=== PATIENT | male | born 1995 | race Hispanic/Latino ===

== ENCOUNTER 2017-10-24 19:21 | Emergency (ER) | payer SELFPAY ==
[2017-10-24] MEDS ORDERED: BUPIVACAINE 0.5% PF 10 ML VIAL ONE (19:51)
[2017-10-24] MEDS ORDERED: LIDOCAINE 1% MPF 5 ML VIAL ONE (19:51)
--- NOTE | 2017-10-24 20:31 | ER ---
Nurse's Notes [facility] Name: Minh Leo Age: 22 yrs Sex: Male : 1995 Arrival Date: 10/24/2017 Time: 19:22 Bed 18 Private MD: Diagnosis: Ingrowing nail-right great toe Presentation: 10/24 19:43 Presenting complaint: Patient states: he has ingrown toenail to right big toe which he bb had had removed several times but it keeps growing back, his toe is swollen and painful now. Transition of care: patient was not received from another setting of care. Onset of symptoms was October 24, 2017. Risk Assessment: Do you want to hurt yourself or someone else? Patient reports no desire to harm self or others. Initial Sepsis Screen: Does the patient meet any 2 criteria? No. Patient's initial sepsis screen is negative. Does the patient have a suspected source of infection? No. Patient's initial sepsis screen is negative. Care prior to arrival: None. 19:43 Method Of Arrival: Ambulatory bb 19:43 Acuity: CHALO 3 bb Historical: - Allergies: 19:45 No Known Allergies; bb - Home Meds: 19:45 None [Active]; bb - PMHx: 19:45 None; bb - PSHx: 19:45 None; bb - Immunization history:: Adult Immunizations up to date. - Social history:: Smoking status: Patient/guardian denies using tobacco, Patient/guardian denies using alcohol, street drugs. - Ebola Screening: : No symptoms or risks identified at this time. Screenin:46 Abuse screen: Denies threats or abuse. Nutritional screening: No deficits noted. bb Tuberculosis screening: No symptoms or risk factors identified. Fall Risk None identified. Assessment: 19:46 General: Appears in no apparent distress. Behavior is calm, cooperative. Pain: bb Complains of pain in Right first toenail Pain currently is 8 out of 10 on a pain scale. Neuro: Level of Consciousness is awake, alert, obeys commands, Oriented to person, place, time, situation. Cardiovascular: No deficits noted. Respiratory: Respiratory effort is even, unlabored. GI: No deficits noted. No signs and/or symptoms were reported involving the gastrointestinal system. Derm: Skin is pink, warm \T\ dry. Musculoskeletal: Circulation, motion, and sensation intact. Reports pain in Right first toenail. Vital Signs: 19:45 BP 125 / 80; Pulse 58; Resp 16 S; Temp 98.6(O); Pulse Ox 99% on R/A; Weight 77.11 kg bb (R); Height 5 ft. 9 in. (175.26 cm) (R); Pain 8/10; 20:53 BP 119 / 81; Pulse 55; Resp 16; Temp 98.6; Pulse Ox 99% on R/A; Pain 0/10; ak1 19:45 Body Mass Index 25.10 (77.11 kg, 175.26 cm) bb ED Course: 19:22 Patient arrived in ED. ds1 19:39 Ochoa Chandler NP is PHCP. pm1 19:39 Dariusz Villar MD is Attending Physician. pm1 19:44 Triage completed. bb 19:45 Arm band placed on Patient placed in an exam room, on a stretcher, on pulse oximetry. bb 19:46 Patient has correct armband on for positive identification. Bed in low position. Call bb light in reach. Side rails up X 1. Pulse ox on. NIBP on. 19:49 Christiana Maria, RN is Primary Nurse. ak1 20:53 Assist provider with I \T\ D: Performed by Ochoa Chandler NP Dressing with 4X4s, tape ak1 Patient tolerated well. ingrown toe nail removed from right great toe. Patient did not have IV access during this emergency room visit. 20:55 Dressings: non-adherent dressing x 1 right foot Tegaderm X 2; right foot 4X4s X 1; ak1 right foot. Administered Medications: 20:42 Drug: Lidocaine (1 %) 5 ml {Note: to the bedside for ERP use.} Volume: 5 ml; Route: ak1 Infiltration; 20:42 Drug: Marcaine (0.5 %) 10 ml {Note: to bedside for ERP use.} Volume: 10 ml; Route: ak1 Infiltration; 20:53 Drug: [place] 5 mg-325 mg 1 tabs Route: PO; ak1 20:53 Follow up: Response: No adverse reaction ak1 Outcome: 20:30 Discharge ordered by . pm1 20:53 Discharged to home ambulatory, with family. ak1 20:53 Condition: good 20:53 Discharge instructions given to patient, Instructed on discharge instructions, follow up and referral plans. no drinking with medication, no driving heavy equipment, medication usage, wound care, Demonstrated understanding of instructions, follow-up care, medications, wound care, Prescriptions given X 2. 20:55 Patient left the ED. ak1 Signatures: Karol Gottlieb ds1 Nina Vaughan RN RN bb Christiana Maria RN RN ak1 Ochoa Chandler, OVERAGE SHORTAGE AND DAMAGE CLERK OVERAGE SHORTAGE AND DAMAGE CLERK pm1
--- NOTE | 2017-10-24 20:31 | EDPHYS ---
Physician Documentation [facility] Name: Minh Leo Age: 22 yrs Sex: Male : 1995 Arrival Date: 10/24/2017 Time: 19:22 Bed 18 Private MD: ED Physician Dariusz Villar HPI: 10/24 20:30 This 22 yrs old Male presents to ER via Ambulatory with complaints of Ingrown pm1 toe nail. 20:30 The patient presents with pain, that is acute. The complaints affect the Right first pm1 toenail. Context: The problem was sustained at home, resulted from an unknown cause, the patient can fully bear weight, the patient is able to ambulate. Onset: The symptoms/episode began/occurred 1 week(s) ago. Modifying factors: The symptoms are alleviated by nothing, the symptoms are aggravated by nothing. Associated signs and symptoms: Pertinent negatives: fever, numbness, tingling. Severity of symptoms: in the emergency department the symptoms are actually worse. The patient has experienced similar episodes in the past, 3 times. Patient with a history of ingrown toe nail to right great toe. Has has three prior treatments to right great toe nail. Two times just the ingrown edge removed and one partial toe nail removal. Historical: - Allergies: 19:45 No Known Allergies; bb - Home Meds: 19:45 None [Active]; bb - PMHx: 19:45 None; bb - PSHx: 19:45 None; bb - Immunization history:: Adult Immunizations up to date. - Social history:: Smoking status: Patient/guardian denies using tobacco, Patient/guardian denies using alcohol, street drugs. - Ebola Screening: : No symptoms or risks identified at this time. ROS: 20:30 MS/extremity: Positive for pain, of the right great toe. pm1 20:30 Constitutional: Negative for fever, chills, and weight loss, Eyes: Negative for injury, pain, redness, and discharge, ENT: Negative for injury, pain, and discharge, Neck: Negative for injury, pain, and swelling, Cardiovascular: Negative for chest pain, palpitations, and edema, Respiratory: Negative for shortness of breath, cough, wheezing, and pleuritic chest pain, Abdomen/GI: Negative for abdominal pain, nausea, vomiting, diarrhea, and constipation, Back: Negative for injury and pain, MS/Extremity: Negative for injury and deformity, Skin: Negative for injury, rash, and discoloration, Neuro: Negative for headache, weakness, numbness, tingling, and seizure. Exam: 20:30 Constitutional: This is a well developed, well nourished patient who is awake, alert, pm1 and in no acute distress. Head/Face: Normocephalic, atraumatic. Chest/axilla: Normal chest wall appearance and motion. Nontender with no deformity. No lesions are appreciated. Cardiovascular: Regular rate and rhythm with a normal S1 and S2. No gallops, murmurs, or rubs. Normal PMI, no JVD. No pulse deficits. Respiratory: Lungs have equal breath sounds bilaterally, clear to auscultation and percussion. No rales, rhonchi or wheezes noted. No increased work of breathing, no retractions or nasal flaring. Abdomen/GI: Soft, non-tender, with normal bowel sounds. No distension or tympany. No guarding or rebound. No evidence of tenderness throughout. Back: No spinal tenderness. No costovertebral tenderness. Full range of motion. 20:30 Skin: Appearance: normal except for affected area, Granulation, redness, and drainage from the lateral distal aspect of right great toe nail. . 20:30 Neuro: Orientation: is normal, Motor: is normal, Sensation: is normal, no obvious gross deficits. Vital Signs: 19:45 BP 125 / 80; Pulse 58; Resp 16 S; Temp 98.6(O); Pulse Ox 99% on R/A; Weight 77.11 kg bb (R); Height 5 ft. 9 in. (175.26 cm) (R); Pain 8/10; 20:53 BP 119 / 81; Pulse 55; Resp 16; Temp 98.6; Pulse Ox 99% on R/A; Pain 0/10; ak1 19:45 Body Mass Index 25.10 (77.11 kg, 175.26 cm) Procedures: 20:24 Performed Partial toenail removal or right great toe for treatment of ingrown toenail. pm1 patient tolerated procedure well. 3ml of lidocaine/marcaine digital block performed. . MDM: 19:39 Patient medically screened. pm1 20:29 Data reviewed: vital signs. Data interpreted: Pulse oximetry: on room air is 99 %. pm1 Interpretation: normal. Counseling: I had a detailed discussion with the patient and/or guardian regarding: the historical points, exam findings, and any diagnostic results supporting the discharge/admit diagnosis, the need for outpatient follow up, to return to the emergency department if symptoms worsen or persist or if there are any questions or concerns that arise at home. Administered Medications: 20:42 Drug: Lidocaine (1 %) 5 ml {Note: to the bedside for ERP use.} Volume: 5 ml; Route: ak1 Infiltration; 20:42 Drug: Marcaine (0.5 %) 10 ml {Note: to bedside for ERP use.} Volume: 10 ml; Route: ak1 Infiltration; 20:53 Drug: [place] 5 mg-325 mg 1 tabs Route: PO; ak1 20:53 Follow up: Response: No adverse reaction ak1 Disposition: 20:59 Co-signature as Attending Physician, Dariusz Villar MD. pk Disposition: 10/24/17 20:30 Discharged to Home. Impression: Ingrowing nail - right great toe. - Condition is Stable. - Discharge Instructions: Infected Ingrown Toenail, Toenail Removal. - Prescriptions for Tylenol- Codeine #3 300-30 mg Oral Tablet - take 2 tablets by ORAL route every 6 hours As needed; 20 tablet. Bactrim DS 800- 160 mg Oral Tablet - take 1 tablet by ORAL route every 12 hours for 10 days; 20 tablet. - Medication Reconciliation Form, Thank You Letter, Antibiotic Education, Prescription Opioid Use form. - Follow up: Emergency Department; When: As needed; Reason: Worsening of condition. Follow up: Private Physician; When: 2 - 3 days; Reason: Recheck today's complaints, Continuance of care, Re-evaluation by your physician. - Problem is new. - Symptoms have improved. Signatures: Dariusz Villar MD MD pkl Nina Vaughan RN RN Christiana Nguyen RN RN ak1 Ochoa Chandler NP NUTRITION ASSOCIATE pm1 Corrections: (The following items were deleted from the chart) 20:55 20:30 10/24/2017 20:30 Discharged to Home. Impression: Ingrowing nail - right great ak1 toe. Condition is Stable. Forms are Medication Reconciliation Form, Thank You Letter, Antibiotic Education, Prescription Opioid Use. Follow up: Emergency Department; When: As needed; Reason: Worsening of condition. Follow up: Private Physician; When: 2 - 3 days; Reason: Recheck today's complaints, Continuance of care, Re-evaluation by your physician. Problem is new. Symptoms have improved. pm1
[2017-10-24] MEDS ORDERED: HYDROCODONE/APAP 5/325 MG TAB ONE (20:49)
== END 2017-10-24 20:55 | disposition home or self-care (01) ==
LOC: ER 19:21
DX: L60.0 Ingrowing nail (principal)
CPT/HCPCS: 99284